=== PATIENT | female | born 2005 | race Caucasian/White ===

== ENCOUNTER → 2024-01-29 | Day surgery (SDC) | payer MEDICAID ==
[~2024-01-29] VITALS: Ht 160 cm; Wt 73.5 kg
[~2024-01-29] MED LIST: BUPIVACAINE HCL/PF 0.5% (5MG/ML) 10ML ONE; DEXAMETHASONE 4MG/ML 1ML VIAL ONE; FENTANYL CITRATE/PF 50MCG/ML 2ML VIAL ONE; GLYCOPYRROLATE 0.2 MG/ML 2ML VIAL ONE; IBUP-2029 PO; LABETALOL 5MG/ML 4ML INJ IV PRN; MEPERIDINE HCL/PF 25MG/ML CPJ IV PRN; MIDAZOLAM HCL 2 MG/2 ML VIAL ONE; NEOSTIGMINE METHYLSULFATE 1MG/ML 10 ML VIAL ONE; ONDANSETRON HCL 4MG/2ML INJ ONE; PROPOFOL 200MG/20ML VIAL IV ONE; ROCURONIUM BROMIDE 10MG/ML VIAL 5ML IV ONE; SKIN ADHESIVE 0.7 GM EA TOP ONE; SUGAMMADEX SODIUM 200 MG/2 ML VIAL IV NR
[2024-01-29 06:25] LABS: UCG KIT LOT# 798852; UCG SCREEN NEGATIVE
[2024-01-29] MEDS: LACTATED RINGERS 1,000 ML IV SCH (06:47)
[2024-01-29] MEDS: ONDANSETRON HCL 4MG/2ML INJ IV PRN (08:53)
[2024-01-29 08:59] VITALS: BP 137/92; PULSE 89; RESP 21
[2024-01-29] MEDS: HYDROMORPHONE HCL/PF 2MG/ML INJ IV PRN (08:59)
== END | disposition home or self-care (01) ==
LOC: OR 06:12
PROVIDERS: ATTEND Surgery
DX: K80.10 Calculus of gallbladder with chronic cholecystitis without obstruction (principal); Z79.899 Other long term (current) drug therapy; Z98.890 Other specified postprocedural states
CPT/HCPCS: 47562; 81025; 88304; J3010; J3490 ×3; J1100; J2250; J2405; J2704; J1170; J7030; J2710

== ENCOUNTER 2025-03-23 19:30 | Emergency (ER) | payer MEDICAID ==
[~2025-03-23] VITALS: Ht 162.6 cm; Wt 67.0 kg
[~2025-03-23 19:30] MED LIST changes: -BUPIVACAINE HCL/PF 0.5% (5MG/ML) 10ML ONE; -DEXAMETHASONE 4MG/ML 1ML VIAL ONE; -FENTANYL CITRATE/PF 50MCG/ML 2ML VIAL ONE; -GLYCOPYRROLATE 0.2 MG/ML 2ML VIAL ONE; -LABETALOL 5MG/ML 4ML INJ IV PRN; -MEPERIDINE HCL/PF 25MG/ML CPJ IV PRN; -MIDAZOLAM HCL 2 MG/2 ML VIAL ONE; -NEOSTIGMINE METHYLSULFATE 1MG/ML 10 ML VIAL ONE; -ONDANSETRON HCL 4MG/2ML INJ ONE; -PROPOFOL 200MG/20ML VIAL IV ONE; -ROCURONIUM BROMIDE 10MG/ML VIAL 5ML IV ONE; -SKIN ADHESIVE 0.7 GM EA TOP ONE; -SUGAMMADEX SODIUM 200 MG/2 ML VIAL IV NR
[2025-03-23 20:04] VITALS: TEMP 36.9; O2SAT 99
[2025-03-23 20:21] LABS: GLUCOSE URINE NEGATIVE (NEGATIVE); KETONES URINE NEGATIVE (NEGATIVE); LEUKOCYTE ESTERASE URINE 2+ (NEGATIVE); NITRITE URINE NEGATIVE (NEGATIVE); OCCULT BLOOD URINE TRACE (NEGATIVE); PH URINE 6.5 (4.5-8.0); PROTEIN URINE NEGATIVE (NEGATIVE); SPECIFIC GRAVITY URINE 1.023 (1.005-1.030); UROBILINOGEN URINE 1.0 E.U./dL (0.2-1.0)
[2025-03-23] MEDS ORDERED: CEPH500T MT (20:31)
[2025-03-23] MEDS ORDERED: IBUP-2030 MT (20:32)
[2025-03-23 20:39] LABS: CLARITY URINE SL HAZY (CLEAR); COLOR URINE STRAW (YELLOW)
[2025-03-23 20:40] LABS: BACTERIA URINE 1+; MUCUS URINE TRACE /lpf (< = 2+); RBC URINE 0-2 /hpf (0-2); SQUAMOUS EPITHELIAL CELL URINE 3+ /lpf (RARE/1+)
[2025-03-23] MEDS: IBUPROFEN 800MG TABLET PO ONE (20:55)
[2025-03-23] MEDS: CEFTRIAXONE SODIUM 1G VIAL IM ONE (20:55)
[2025-03-23 20:56] VITALS: BP 127/84; PULSE 84; RESP 13; O2SAT 100
== END 2025-03-23 20:58 | disposition home or self-care (01) ==
LOC: ER 19:30
DX: N39.0 Urinary tract infection, site not specified (principal); Z98.890 Other specified postprocedural states
CPT/HCPCS: 81003; 81025; 96372; 99283; J0696; Z7610